=== PATIENT | male | born 1975 | race Caucasian/White ===

== ENCOUNTER 2023-07-24 17:30 | Emergency (ER) | payer OTHER, SELFPAY ==
--- NOTE | ~2023-07-24 | XR_ITS ---
EXAMINATION: XR knee LT min 4V DATE: 07/24/2023 18:59 INDICATION: Left knee pain. Swelling. TECHNIQUE: 4 views of left knee were obtained. COMPARISON: None. FINDINGS: Bone alignment is normal. No fracture. There is mild tricompartmental osteoarthritis. There is a small knee joint effusion. IMPRESSION: 1. Mild left knee osteoarthritis. 2. Small left knee joint effusion. Reviewed, dictated and finalized at location [facility]
[2023-07-24 17:46] VITALS: BP 150/96; PULSE 90; RESP 16; TEMP 37.5; O2SAT 97
--- NOTE | 2023-07-24 18:44 | ED.EXTPRO ---
HPI - Extremity Problem General Chief complaint: Extremity Problem,Nontraumatic Stated complaint: Left Knee Pain Time Seen by Provider: 07/24/23 18:44 Source: patient Mode of arrival: ambulatory Limitations: no limitations History of Present Illness HPI Narrative: 48-year-old male presents with complaint of pain to left knee for several months. Reports that he has mention in the past to his primary care physician who said he would order physical therapy but that was never ordered. Patient has not had x-ray of left knee. Reports over the past week pain worse with swelling and stiffness. Denies injury. All systems reviewed and negative except as noted above. Related Data Allergies Allergy/AdvReac Type Severity Reaction Status Date / Time Penicillins Allergy Unknown SWELLING Verified 07/24/23 17:53 OF GREAT TOE AT AGE 2 Review of Systems Review of Systems: CONSTITUTIONAL: Denies fever, chills, or sweats. EYES: Denies visual changes, redness, or discharge. ENT: Denies rhinorrhea, congestion, sore throat, or otalgia. CARDIOVASCULAR: Denies chest pain, palpitations, or edema. RESPIRATORY: Denies cough or dyspnea. GASTROINTESTINAL: Denies abdominal pain, nausea, vomiting, or diarrhea. GENITOURINARY: Denies dysuria or hematuria. SKIN: Denies rash or itching. MUSCULOSKELETAL: Denies back pain, or myalgia. Reports pain and swelling to left knee. NEUROLOGIC: Denies headache, numbness, or weakness. PSYCHIATRIC: Denies anxiety or depression. All other systems reviewed are negative, except as documented in HPI. [facility] Past Medical History Medical History (Updated 07/24/23 @ 19:18 by Zaida Jamison NP) Diplopia Right hand paresthesia Surgical History Surgical History (Updated 06/30/19 @ 09:38 by Elisa Ny MD) H/O hand surgery Family History Family History (Updated 06/30/19 @ 09:39 by Elisa Ny MD) Father Malignant neoplasm of prostate Social History Social History (Updated 06/30/19 @ 09:40 by Elisa Ny MD) Social History: lives with his and son. sleeps in a separate bed with son and dog Smoking status: Never smoker Alcohol intake: never Substance use: never Additional occupation/education comments: works in a [employer] Comments At time of signature, agree with nursing past medical, surgical, social and family history. There is no relevant family history pertinent to the presenting complaint. Exam Narrative: GENERAL: This is a well-nourished, well-developed patient, in no apparent distress. HEAD: normocephalic, atraumatic. EYES: PERRL. Sclera clear/white. Vision is grossly intact. EARS: External ears normal NOSE: External nose normal NECK: Neck supple, non-tender without lymphadenopathy, masses or thyromegaly. CARDIOVASCULAR: Regular rate and rhythm without murmurs, gallops, or rubs. RESPIRATORY: Clear to auscultation. Breath sounds equal bilaterally. No wheezes, rales, or rhonchi. SKIN: warm, Dry, intact with no suspicious lesions or rash, good texture and turgor. NEURO: awake, alert, and oriented to person, place and time. There were no obvious focal neurologic abnormalities. EXTREMITIES: Mild swelling to left knee with tenderness to medial aspect. Decreased extension due to pain and stiffness. Course Course Level of Care: Express Care Visit Vital Signs Vital signs: Vital Signs Temperature 37.5 C 07/24/23 17:46 Pulse Rate 90 07/24/23 17:46 Respiratory Rate 16 07/24/23 17:46 Blood Pressure 150/96 H 07/24/23 17:46 Pulse Oximetry 97 07/24/23 17:46 Oxygen Delivery Room Air 07/24/23 17:46 Temperature 37.5 C 07/24/23 17:46 Pulse Rate 90 07/24/23 17:46 Respiratory Rate 16 07/24/23 17:46 Blood Pressure 150/96 H 07/24/23 17:46 Pulse Oximetry 97 07/24/23 17:46 Oxygen Delivery Room Air 07/24/23 18:00 Reviewed MDM - Extremity (Nontraumatic) MDM Suzanne
== END 2023-07-24 19:25 | disposition home or self-care (01) ==
PROVIDERS: Emergency Provider Nurse Practitioner Family; PCP Physician Assistant
DX: M17.12 Unilateral primary osteoarthritis, left knee (principal); M25.462 Effusion, left knee
CPT/HCPCS: 73564; 99213; G0463

== ENCOUNTER 2023-10-26 05:36 | Emergency (ER) | payer OTHER, SELFPAY ==
[2023-10-26] VITALS (20 sets, daily range): BP systolic 126–158; BP diastolic 85–98; PULSE 70–94; RESP 13–20; TEMP 36.8; O2SAT 93–100
--- NOTE | ~2023-10-26 | CT_ITS ---
EXAMINATION: CT abdomen pelvis wo con DATE: 10/26/2023 05:59 INDICATION: Left flank pain TECHNIQUE: Computed tomography (CT) of the abdomen and pelvis was performed without intravenous contr ast. Automated exposure control and iterative reconstruction technique were employed. Exam dose: 106 4.82 mGy-cm total exam DLP. COMPARISON: 07/13/2010 CT renal scan FINDINGS: Minimal discoid atelectasis or scarring in the bases of the lower lobes. No basilar consoli dation. Normal heart size. No pericardial or pleural effusion. The liver, spleen, pancreas, gallbladder, bile ducts and pancreatic duct and adrenal glands are unrem arkable. 4 mm proximal left ureteral calculus with mild to moderate left hydronephrosis and mild left perineph james fat stranding. No urinary tract calculus. No right hydroureteronephrosis. No renal space occupying mass lesion is evident on this limited noncontrast examination. The urinary bladder is nearly evacuated. Mild prostate enlargement and calcification. Bilateral fat-containing inguinal hernias, larger on the left. Normal caliber of the abdominal aorta. No intraperitoneal or retroperitoneal or pelvic mass lesion or adenopathy or ascites. Normal appendix. No bowel obstruction or intraperitoneal free air. No suspicious osteolytic or osteoblastic lesions. IMPRESSION: 4 mm proximal left ureteral calculus with mild to moderate left hydronephrosis Reviewed, dictated and finalized at Location [facility]. Reviewed, dictated and finalized at location A. IMPRESSION: 4 mm proximal left ureteral calculus with mild to moderate left hy dronephrosis
--- NOTE | 2023-10-26 05:39 | ED.MALEGU ---
HPI - Male Genitourinary General Chief complaint: Urogenital-Male <Hector Manuel MD - Last Filed: 10/26/23 06:46> Stated complaint: flank pain <Hector Manuel MD - Last Filed: 10/26/23 06:46> Time Seen by Provider: 10/26/23 05:38 <Hector Manuel MD - Last Filed: 10/26/23 06:46> History of Present Illness HPI Narrative: Patient is a 48-year-old male who presents ER with left-sided abdominal pain. Diagnosed with a kidney stone on 10/24/2023 in [place], [place] at [facility]. He reports it was 4 mm in size. Pain increasing this evening. Mid abdomen. No vomiting. No fevers or chills or sweats. Initially pain improved with norco but now it isn't helping. <Hector Manuel MD - Last Filed: 10/26/23 06:46> Related Data Home medications: Home Medications Medication Instructions Recorded Confirmed hydrocodone 5 mg-acetaminophen 325 tablet 10/26/23 mg tablet naproxen 500 mg tablet mg 10/26/23 ondansetron 4 mg disintegrating mg 10/26/23 tablet tamsulosin 0.4 mg capsule mg PO 10/26/23 <Hector Manuel MD - Last Filed: 10/26/23 06:46> Allergies/Adverse reactions: Allergies Allergy/AdvReac Type Severity Reaction Status Date / Time Penicillins Allergy Unknown SWELLING Verified 10/26/23 05:42 OF GREAT TOE AT AGE 2 <Hector Manuel MD - Last Filed: 10/26/23 06:46> Review of Systems Review of Systems: All systems reviewed & are unremarkable except as noted in HPI and below <Hector Manuel MD - Last Filed: 10/26/23 06:46> Constitutional: Constitutional: Reports no additional constitutional complaints <Hector Manuel MD - Last Filed: 10/26/23 06:46> Cardiovascular: Cardiovascular: Reports no additional cardiovascular complaints <Hector Manuel MD - Last Filed: 10/26/23 06:46> Respiratory: Respiratory: Reports no additional respiratory complaints <Hector Manuel MD - Last Filed: 10/26/23 06:46> Gastrointestinal: Gastrointestinal: Reports abdominal pain, Reports nausea and Denies vomiting <Hector Manuel MD - Last Filed: 10/26/23 06:46> Genitourinary: Genitourinary: Reports no additional male genitourinary complaints <Hector Manuel MD - Last Filed: 10/26/23 06:46> PMFSH Past Medical History Medical History: Medical History (Updated 10/26/23 @ 08:45 by Moses Murphy MD) Diplopia Kidney stones Prediabetes Right hand paresthesia <Hector Manuel MD - Last Filed: 10/26/23 06:46> Surgical History Surgical History: Surgical History (Updated 06/30/19 @ 09:38 by Elisa Ny MD) H/O hand surgery <Hector Manuel MD - Last Filed: 10/26/23 06:46> Family History Family History: Family History (Updated 06/30/19 @ 09:39 by Elisa Ny MD) Father Malignant neoplasm of prostate <Hector Manuel MD - Last Filed: 10/26/23 06:46> Social History Social History: Social History (Updated 06/30/19 @ 09:40 by Elisa Ny MD) Social History: lives with his and son. sleeps in a separate bed with son and dog Smoking status: Never smoker Alcohol intake: never Substance use: never Additional occupation/education comments: works in a hand personal [employer] <Hector Manuel MD - Last Filed: 10/26/23 06:46> Exam Narrative: GENERAL: Uncomfortable-appearing, well-nourished, and in no acute distress. HEAD: Normocephalic, atraumatic. ENT: Mucous membranes moist. CHEST: Clear to auscultation. No respiratory distress. HEART: Regular rate and rhythm. Normal peripheral pulses. ABDOMEN: Soft, nontender, nondistended. No CVA tenderness. EXTREMITIES: Normal range of motion. No edema. SKIN: Warm, dry, no rash. NEURO: Alert and oriented x3. PSYCH: Normal mood and affect. <Hector Manuel MD - Last Filed: 10/26/23 06:46> Course Course Emergency Course: 0700: MICHELE to Dr. Murphy pending UA. Patient has received toradol 30mg and m
[2023-10-26] MEDS: SODIUM CHLORIDE 0.9% IV 1,000 ML 999 ML IV CONT (06:07)
[2023-10-26] MEDS: KETOROLAC 30 MG/ML VIAL (*BKC) IV PUSH (06:08)
[2023-10-26 06:14] LABS: Basophils Percent Auto 0.3 % (0.2-1.2); Eosinophils Percent Auto 0.1 % (0-4.4); Hematocrit 50.5 % (42.0-52.0); Hemoglobin 16.3 g/dL (14.0-18.0); Immature Granulocyte Absolute 0.03 K/mm3 (0.00-0.031); Immature Granulocyte Percent A 0.3 % (0-0.5); Lymphocytes Absolute Auto 1.11 K/mm3 (0.9-3.2); Lymphocytes Percent Auto 10.1 % (18.3-44.2); Mean Corpuscular HGB Conc 32.3 g/dl (32-36); Mean Corpuscular Volume 89.9 fl (80-100); Mean Platelet Volume 11.1 fl (7.4-10.4); Monocytes Absolute Auto 0.6 K/mm3 (0.1-0.6); Neutrophils Absolute Auto 9.2 K/mm3 (1.3-6.7); Neutrophils Percent Auto 84.2 % (45.5-73.1); Platelet Count Result 180 k/mm3 (150-375); Red Blood Count 5.62 M/mm3 (4.6-6.20); Red Cell Distribution Width 13.8 % (11.5-14.5); White Blood Count 10.9 K/mm3 (4.5-10.0)
[2023-10-26 06:26] LABS: Alanine Aminotransferase 31 U/L (6-50); Albumin Level 4.3 g/dL (3.5-5.1); Alkaline Phosphatase 49 U/L (38-126); Anion Gap 10 mmol/L (4-12); Aspartate Amino Transferase 28 U/L (17-59); Bilirubin,Total 1.1 mg/dL (0.2-1.3); Blood Urea Nitrogen 16 mg/dL (9-20); Calcium 8.7 mg/dL (8.4-10.2); Carbon Dioxide 22 mmol/L (22-30); Chloride 106 mmol/L (98-107); Estimated Glomerular Filt Rate 46; Glucose 124 mg/dL (65-110); Potassium 4.1 mmol/L (3.4-5.0); Sodium 138 mmol/L (137-145)
[2023-10-26] MEDS: MORPHINE SULFATE (*CRX) 4 MG/ML INJ IV PUSH (06:45)
--- NOTE | 2023-10-26 06:49 | PC.NURSE ---
Patient ambulated to the bathroom and back to room with a steady gait to attempt to provide a urine sample, patient was unsuccessful.
[2023-10-26 07:59] LABS: Appearance Urine Clear (Clear); Bilirubin Urine Negative (Negative); Blood Urine Negative (Negative); Color Urine Yellow (Yellow); Glucose Urine UA Negative (Negative); Ketones Urine 3+ mg/dL (Negative); Leukocyte Esterase Ur Negative LEU/UL (Negative); Nitrate Urine Negative (Negative); Protein Urine Negative (Negative); Specific Grav Ur 1.029 (1.001-1.035); pH Urine 5.5 (5.0-9.0)
[2023-10-26 08:03] LABS: Add Urine Microscopic? NO
== END 2023-10-26 08:59 | disposition home or self-care (01) ==
PROVIDERS: Emergency Provider Emergency Medicine; PCP Physician Assistant
DX: N20.0 Calculus of kidney (principal); Z87.442 Personal history of urinary calculi
CPT/HCPCS: 36415; 74176; 80053; 81003; 85025; 96361; 96374; 96375; 99284; J1885; J2270; J7030

== ENCOUNTER 2023-11-02 13:06 | Emergency (ER) | payer OTHER, SELFPAY ==
--- NOTE | ~2023-11-02 | XR_ITS ---
XR abdomen/kub 1V Ordering provider: Julio Cesar Clemons History: . History of kidney stone on left, pain . Comparison: None. FINDINGS: BOWEL: Nonobstructive bowel gas pattern. ORGANOMEGALY: None. SIGNIFICANT PATHOLOGIC CALCIFICATIONS: stone is seen in the left mid ureter. Possible stone in the le ft upper ureter. Phlebolith is seen in the left side of the pelvis. OTHER: No free air is seen under the diaphragm. IMPRESSION: left ureteric stones. Reviewed, dictated and finalized at location A. IMPRESSION: left ureteric stones.
[2023-11-02 13:20] VITALS: BP 156/88; PULSE 90; RESP 16; TEMP 36.5; O2SAT 99
[2023-11-02 13:43] LABS: Basophils Percent Auto 0.3 % (0.2-1.2); Eosinophils Percent Auto 0.2 % (0-4.4); Hematocrit 49.6 % (42.0-52.0); Hemoglobin 16.3 g/dL (14.0-18.0); Immature Granulocyte Absolute 0.03 K/mm3 (0.00-0.031); Immature Granulocyte Percent A 0.3 % (0-0.5); Lymphocytes Percent Auto 13.3 % (18.3-44.2); Mean Corpuscular HGB Conc 32.9 g/dl (32-36); Mean Corpuscular Volume 88.3 fl (80-100); Mean Platelet Volume 10.8 fl (7.4-10.4); Monocytes Absolute Auto 0.5 K/mm3 (0.1-0.6); Neutrophils Absolute Auto 7.2 K/mm3 (1.3-6.7); Neutrophils Percent Auto 79.9 % (45.5-73.1); Platelet Count Result 253 k/mm3 (150-375); Red Blood Count 5.62 M/mm3 (4.6-6.20); Red Cell Distribution Width 13.3 % (11.5-14.5)
[2023-11-02 13:53] LABS: Alanine Aminotransferase 20 U/L (6-50); Albumin Level 4.6 g/dL (3.5-5.1); Alkaline Phosphatase 54 U/L (38-126); Anion Gap 10 mmol/L (4-12); Aspartate Amino Transferase 22 U/L (17-59); Bilirubin,Total 0.7 mg/dL (0.2-1.3); Blood Urea Nitrogen 17 mg/dL (9-20); Calcium 9.2 mg/dL (8.4-10.2); Carbon Dioxide 25 mmol/L (22-30); Chloride 106 mmol/L (98-107); Estimated CRCL calculation 78 ml/min; Estimated Glomerular Filt Rate 59; Glucose 119 mg/dL (65-110); Potassium 4.3 mmol/L (3.4-5.0); Sodium 141 mmol/L (137-145)
--- NOTE | 2023-11-02 14:34 | ED.BACK ---
HPI - Back Pain/Injury General Chief Complaint: Back Pain/Injury Stated Complaint: L. flank pain Time Seen by Provider: 11/02/23 13:52 History of Present Illness HPI Narrative: 48-year-old male presenting to the emergency department for evaluation of intermittent left lower quadrant pain. Patient was diagnosed with a kidney stone on 10/23. Patient had recurrent pain and was re-evaluated in the emergency department last week 10/26. The patient does have follow-up scheduled urology. Patient did have follow-up with his primary care physician yesterday and patient was feeling improved and was not provided needed some medication for pain control. Patient had acutely worsening pain last night. Patient was also having intense tenderness at 10 abdominal pain today. Prior to evaluation patient feels that the pain has since improved to the emergency department. On initial evaluation patient declined any medications for pain control Related Data Home Medications Medication Instructions Recorded Confirmed hydrocodone 5 mg-acetaminophen 325 tablet 10/26/23 mg tablet naproxen 500 mg tablet mg 10/26/23 ondansetron 4 mg disintegrating mg 10/26/23 tablet tamsulosin 0.4 mg capsule mg PO 10/26/23 Allergies Allergy/AdvReac Type Severity Reaction Status Date / Time Penicillins Allergy Unknown SWELLING Verified 11/02/23 13:42 OF GREAT TOE AT AGE 2 Review of Systems Review of Systems: All systems reviewed & are unremarkable except as noted in HPI and below PMFSH Past Medical History Medical History (Updated 11/02/23 @ 16:50 by Julio Cesar Clemons MD) Diplopia Kidney stones Prediabetes Right hand paresthesia Surgical History Surgical History (Updated 06/30/19 @ 09:38 by Elisa Ny MD) H/O hand surgery Family History Family History (Updated 06/30/19 @ 09:39 by Elisa Ny MD) Father Malignant neoplasm of prostate Social History Social History (Updated 06/30/19 @ 09:40 by Elisa Ny MD) Social History: lives with his and son. sleeps in a separate bed with son and dog Smoking status: Never smoker Alcohol intake: never Substance use: never Additional occupation/education comments: works in a [employer] Exam Narrative: APPEARANCE: No significant distress HEAD: normocephalic, atraumatic. EYES: PERRLA/EOMI, conjunctivae clear. NOSE: Normal no drainage EARS:TMS clear with good light reflex. THROAT: Pharynx clear, no exudate. NECK: Supple. No adenopathy, no masses. RESPIRATORY: Airway patent, respirations nonlabored. Clear to auscultation bilaterally, no rales, rhonchi, wheezing. CARDIOVASCULAR: Regular rate and rhythm without murmurs rubs or gallops. ABDOMINAL: Soft, nontender, nondistended, normal bowel sounds MUSCULOSKELETAL: Moves all extremities. Strength/ROM intact, No edema, No calf tenderness. NEURO: Alert. Cranial nerves II through XII intact. Grossly SKIN: Warm, dry. Normal Color Course Vital Signs Vital signs: Vital Signs Temperature 97.7 F 11/02/23 13:20 Pulse Rate 90 11/02/23 13:20 Respiratory Rate 16 11/02/23 13:20 Blood Pressure 156/88 H 11/02/23 13:20 Pulse Oximetry 99 11/02/23 13:20 Oxygen Delivery Room Air 11/02/23 13:20 Temperature 97.7 F 11/02/23 13:20 Pulse Rate 70 11/02/23 16:58 Respiratory Rate 18 11/02/23 16:58 Blood Pressure 138/70 11/02/23 16:58 Pulse Oximetry 99 11/02/23 16:58 Oxygen Delivery Room Air 11/02/23 13:20 MDM - Back Pain/Injury MDM Narrative Medical decision making narrative: 48-year-old male presents emergency department for evaluation for recurrent left flank pain. Patient was concerned that his kidney stones had worsen. X-ray was ordered since patient has had multiple CT scans and x-ray did show suspected ureteral calculi. Urine shows no significant evidence of infection so low concern for a infected stone. Patient only had interm
[2023-11-02 15:24] LABS: Appearance Urine Cloudy (Clear); Bacteria Urine None Seen /hpf; Bilirubin Urine Negative (Negative); Blood Urine 2+ (Negative); Calcium Oxalate Crystals Urine Present /hpf; Color Urine Dark Yellow (Yellow); Glucose Urine UA Negative (Negative); Ketones Urine 1+ mg/dL (Negative); Leukocyte Esterase Ur Negative LEU/UL (Negative); Nitrate Urine Negative (Negative); Protein Urine Trace mg/dL (Negative); RBC Urine 51-100 /hpf (0-2); Specific Grav Ur 1.036 (1.001-1.035); Squamous Epithelial Cell Urine None Seen /hpf (Few); WBC Urine 0-5 /hpf (0-3); pH Urine 5.5 (5.0-9.0)
[2023-11-02 15:25] LABS: Add Urine Microscopic? YES
[2023-11-02] MEDS: HYDROcodone/acetaminophen (*CRX) 5-325 MG TABLET 1 TAB PO (16:52)
[2023-11-02 16:58] VITALS: BP 138/70; PULSE 70; RESP 18; O2SAT 99
== END 2023-11-02 16:59 | disposition home or self-care (01) ==
PROVIDERS: Emergency Medicine; Emergency Provider Emergency Medicine; PCP Physician Assistant
DX: N21.1 Calculus in urethra (principal); R73.03 Prediabetes; Z87.442 Personal history of urinary calculi
CPT/HCPCS: 36415; 74018; 80053; 81001; 85025; 99283; A9270

== ENCOUNTER 2023-12-12 08:18 | Outpatient (CLI) | payer OTHER, SELFPAY ==
--- NOTE | ~2023-12-12 | XR_ITS ---
XR abdomen/kub 1V Ordering provider: Dallin Martin MD History: . LEFT URETERAL STONE, FOLLOW UP . Comparison: November 02, 2023 FINDINGS: BOWEL: Nonobstructive bowel gas pattern. ORGANOMEGALY: None. SIGNIFICANT PATHOLOGIC CALCIFICATIONS: None. Previously seen left ureteric stone is not demonstrate d at this time OTHER: No free air is seen under the diaphragm. IMPRESSION: NO ACUTE ABDOMINAL FINDINGS. Reviewed, dictated and finalized at location A.
== END 2023-12-12 08:19 | disposition home or self-care (01) ==
PROVIDERS: PCP Physician Assistant; Visit Provider Urology
DX: N20.1 Calculus of ureter (principal)
CPT/HCPCS: 74018

== ENCOUNTER 2024-10-29 05:48 | Emergency (ER) | payer OTHER, SELFPAY ==
[2024-10-29 05:50] VITALS: BP 149/90; PULSE 70; TEMP 36.5; O2SAT 97
--- OUTSIDE RECORDS SUMMARY | 2024-10-29 05:50 | XMS_ITS | Referral Summary ---
Author Organization [address] Address [address] [place] [id number] Care Team Providers Care Rail Gang Supervisor Name Role Phone KENTRELL Crowell Jr., Chuck Granado Primary Care Provide r Sandro Pavon MD Unavailable [phone] Allergies Active Allergy Reactions Criticality Noted Date Comments Penicillin G Benzathine Unknown 05/26/2019 Medications HYDROcodone-acetam inophen (NORCO) 5-325 mg per tablet Take 1 tablet by mouth every 4 (four) hours as needed 4 Active tamsulosin (FLOMAX) 0.4 mg extended release capsuleIndications :Urolithiasis Take 1 capsule (0.4 mg total) by mouth daily 30 capsule 1 4 Active ketorolac (TORADOL) 10 mg tabletIndications: Renal Colic,Severe Pain Take 1 tablet (10 mg total) by mouth every 6 (six) hours as needed for pain 20 tablet 1 4 Active ondansetron ODT (ZOFRAN-ODT) 4 mg disintegrating tablet Take 1 tablet (4 mg total) by mouth every 8 (eight) hours as needed for nausea or vomiting 24 tablet 4 Active ergocalciferol (VITAMIN D) 50,000 unit capsule Take 1 capsule (50,000 Units total) by mouth once a week Active anastrozole (ARIMIDEX) 1 mg tablet Take by mouth once a week Active TESTOSTERONE CYPIONATE IM Inject 160 mg into the muscle as instructed once a week Active traZODone (DESYREL) 50 mg tabletIndications: insomnia associated with depression Take 1 tablet (50 mg total) by mouth nightly as needed for sleep 90 tablet 1 12/16/202 4 Active Active Problems Problem Noted Date Diagnosed Date Hematochezia 05/04/2024 Calculus of left kidney 05/23/2018 Overview (07/11/2022): by given hx Obesity, unspecified 12/07/2016 Resolved Problems Problem Noted Date Diagnosed Date Resolved Date Bitten by dog, initial encounter 01/25/2017 05/04/2024 Immunizations Immunization Administration Dates Next Due Influenza, Quadrivalent, Spl it, Preservative Free, Intramuscular 03/11/2018 Influenza, Trivalent, Preser vative Free, Intramuscular 03/11/2017 Influenza, Unspecified 03/20/2023(Deferr ed: Patient Refused),04/10/2022(Deferred: Patient decision) Tdap 01/25/2017 Social History Tobacco Use Types Packs/Day Years Used Date Smoking Tobacco: Never Smokeless Tobacco: Never Tobacco Cessation:Counseling Given: Not Answered AUDIT-C Answer Date Recorded Q1: How often do you have a drink containing alcohol? Never 05/15/2024 Q2: How many drinks containi ng alcohol do you have on a typical day when you are drinking? Patient does not drink Q3: How often do you have si x or more drinks on one occasion? Never 05/15/2024 PHQ-2 Answer Date Recorded PHQ-2 Total Score (If total score is 3 or more points, staff should administer the PHQ-9) 0 11/01/2023 Sex and Gender Information Value Date Recorded Sex Assigned at Not on file Legal Sex Male 1:08 AM [employer] SAL[employer]ERSON Gender Identity Not on file Sexual Orientation Not on file Last Filed Vital Signs Vital Sign Reading Time Taken Comments Blood Pressure 130/82 05/04/2024 8:39 AM [employer] SAL[employer]ERSON Pulse 74 05/04/2024 8:39 AM [employer] SALESPERSON Temperature 36.2 C (97.2 F) 05/04/2024 8:39 AM [employer] SAL[employer]ERSON Respiratory Rate 20 05/04/2024 8:39 AM [employer] SAL[employer]ERSON Oxygen Saturation 98% 05/04/2024 8:39 AM [employer] SALESPERSON Inhaled Oxygen Concentration - - Weight 106.4 kg (234 lb 9.6 oz) 05/04/2024 8:39 AM [employer] SALESPERSON Height 175.9 cm (5' 9.25) 05/04/2024 8:39 AM CS T Body Mass Index 34.39 05/04/2024 8:39 AM [employer] SAL[employer]ERSON Plan of Treatment Not on file Procedures Procedure Name Priority Date/Time Associated Diagnosis Comments HEPATITIS C ANTIBODY Routine 05/04/2024 9:48 AM [employer] SAL[employer]ERSON Annual physical exam Encounter for hepatitis C screening test for low risk patient PSA SCREEN Routine 05/04/2024 9:48 AM [employer] SALESPERSON Annual physical exam from Last 3 Months or Most Recently Relevant to Health Maintenance Results * PSA screen (05/04/2024 9:48 AM [employer] SALESPERSON) PSA-Total 1.81 ng/mL Comment: Interpretive Data AGE SEX REFERENCE INTERVAL 0 minutes-150 years Female None 0 minutes-49 years Male None 50-59 years Male 0-3.90 60-69 years Male 0-5.40 70-79 years Male 0-6.20 80-150 years Male 0-6.20 The Rodney PSA Total assay procedure was used. Results from different manufacturers or methods may not be comparable. Serial testing should be performed using the same method. Current interpretive data last revised 21. Testing performed by: [facility], [address] [place] [address]., [id number] Blood 05/04/2024 9:48 AM [employer] SALESPERSON 05/04/2024 10:41 AM [employer] SALESPERSON us KENTRELL Mckee Jr. LAB BLOOD ORDERABLES Final Result Performing Organization Address City/State/[facility] Co sc Phone Number [facility] [address] [facility] Department [place] [address] * Hepatitis C antibody Blood (05/04/2024 9:48 AM [employer] SALESPERSON) Hep C Ab Nonreactive Nonreactive Comment: Antibodies to HCV not detected. Does NOT exclude the possibility of recent exposure to HCV. Current interpretive data was last revised on 22 Interpretive Data Nonreactive: Antibodies to HCV not detected. Does NOT exclude the possibility of recent exposure to HCV. Equivocal: Equivocal for HCV antibodies. Supplemental molecular testing will be automatically performed to determine infection status in accordance with current CDC screening recommendations. Reactive: Positive for HCV antibodies. This may represent current or past HCV infection. Supplemental molecular testing will be automatically performed to determine current infection status in accordance with current CDC screening recommendations. Interpretive data was last revised on 2019. Blood 05/04/2024 9:48 AM [employer] SALESPERSON 05/04/2024 1:20 PM [employer] SALESPERSON KENTRELL Mckee Jr. LAB MICROBIOLOGY - NERAL ORDERABLES Final Result [facility] [address] [facility] Department [place] [address] from Last 3 Months or Most Recently Relevant to Health Maintenance Insurance [employer] [facility] CHOICE PLUS CIGNA CIGNA Care Teams Rail Gang Supervisor Relationship Specialty Start Date End Date Chuck Crowell Jr., PA [address] [place] [address] [phone] PCP - General Family Medicine 05/18/19 Sandro Pavon MD [address] [place] [address] [phone] Consulting Physician Family Medicine 10/04/21
--- OUTSIDE RECORDS SUMMARY | 2024-10-29 05:50 | XMS_ITS | Clinical Summary ---
Author Organization [address] Address [address] [place] [phone] Care Team Providers Care Senior Solutions Consultant Name Role Phone KENTRELL Crowell Jr., Chuck Granado Primary Care Provide r Sandro Pavon MD Unavailable Allergies Active Allergy Reactions Criticality Noted Date [...] ed: Patient Refused),04/10/2022(Deferred: Patient decision) Tdap 01/25/2017 Medical History Medical History Date Comments Kidney stone Chronic constipation Family History Medical History Relation Name Comments Cancer Father Relation Name Status Comments Father Alive Mother Alive Social History Tobacco Use Types Packs/Day Years [...] on file Legal Sex Male 1:08 AM ACID CONDITIONER Gender Identity Not on file Sexual Orientation Not on file Obstetrics History Last Filed Vital Signs Vital Sign Reading Time Taken Comments Blood Pressure 130/82 05/04/2024 8:39 AM ACID CONDITIONER Pulse 74 05/04/2024 8:39 AM ACID CONDITIONER Temperature 36.2 C (97.2 F) 05/04/2024 8:39 AM ACID CONDITIONER Respiratory Rate 20 05/04/2024 8:39 AM ACID CONDITIONER Oxygen Saturation 98% 05/04/2024 8:39 AM ACID CONDITIONER Inhaled Oxygen Concentration - - Weight 106.4 kg (234 lb 9.6 oz) 05/04/2024 8:39 AM ACID CONDITIONER Height 175.9 cm (5' 9.25) 05/04/2024 8:39 AM CS T Body Mass Index 34.39 05/04/2024 8:39 AM ACID CONDITIONER Plan of Treatment Health Maintenance Due Date Last Done Comments Colon Cancer Screening-Colonoscopy 1974 Hepatitis B Screening 1992 Pneumococcal vaccine <65 (1 of 2 - PCV) 1993 Zoster Vaccine (1 of 2) 1993 Depression Screening 10/31/2024 11/01/2023, 10/04/2021 Influenza Vaccine (Season Ended) 2025 03/11/2018, 03/11/2017 Covid-19 Vaccine (3 - Modern a risk series) 05/04/2025 02/10/2021, 01/13/2021 Postponed from 03/10/2021 (Patient declined, but will receive in the future) Regular Well Visit/Exam 18-64 05/04/2025 05/04/2024 Prostate Cancer Screening-PSA 05/04/2026 05/04/2024 DTaP/Tdap/Td Vaccine (2 - Td or Tdap) 01/25/2027 01/25/2017 Hepatitis C Screening Completed 05/04/2024 Procedures Procedure Name Priority Date/Time Associated Diagnosis Comments HEPATITIS C ANTIBODY Routine 05/04/2024 9:48 AM ACID CONDITIONER Annual physical exam Encounter for hepatitis C screening test for low risk patient PSA SCREEN Routine 05/04/2024 9:48 AM ACID CONDITIONER Annual physical exam from Last 3 Months or Most Recently Relevant to Health Maintenance Results * PSA screen (05/04/2024 9:48 AM ACID CONDITIONER) PSA-Total 1.81 ng/mL Comment: Interpretive Data AGE [...] data last revised 21. Testing performed by: [facility], [address] [place] [address]., [id number] Blood 05/04/2024 9:48 AM ACID CONDITIONER 05/04/2024 10:41 AM ACID CONDITIONER KENTRELL Mckee Jr. LAB BLOOD ORDERABLES Final Result Performing Organization Address [facility] Co de Phone Number SOLO [address] [facility] Department [place] [address] * Hepatitis C antibody Blood (05/04/2024 9:48 AM ACID CONDITIONER) Hep C Ab Nonreactive Nonreactive Comment: Antibodies [...] revised on 2019. Blood 05/04/2024 9:48 AM ACID CONDITIONER 05/04/2024 1:20 PM ACID CONDITIONER us KENTRELL Mckee Jr. LAB MICROBIOLOGY - GE NERAL ORDERABLES Final Result Performing Organization Address [facility] de Phone Number SOLO [address] [facility] Department [place] [address] from Last 3 Months or Most Recently Relevant to Health Maintenance Insurance [facility] Care Teams Senior Solutions Consultant Relationship Specialty Start Date End Date Chuck Crowell Jr. PA [address] [address] PCP - General Family Medicine 05/18/19 Sandro Pavon MD [address] [address] Consulting Physician Family Medicine 10/04/21
--- OUTSIDE RECORDS SUMMARY | 2024-10-29 05:50 | XMS_ITS | Clinical Summary ---
Author Organization [facility] Address [address] [place] [phone] Phone Care Team Providers Care Vocational Trainer Name Role Phone Unavailable Primary Care Provider Unavailabl e Allergies Active Allergy Reactions Criticality Noted Date Comments Penicillin G Benzathine Nausea and Vomiting Low 11/2019 Medications HYDROcodone-dotty taminophen (NORCO) 5-325 mg tabletIndicatio ns:Left ureteral stone Take 1 Tablet by mouth every 4 hours as needed for Pain. Max Daily Amount: 6 Tablets 15 Tablet 10/24/2023 2:14 PM CDT 10/24/2023 Active naproxen (NAPROSYN) 500 mg tablet Take 1 Tablet (500 mg) by mouth 2 times daily with meals. 14 Tablet 10/24/2023 2:14 PM CDT 10/24/2023 Active ondansetron (ZOFRAN ODT) 4 mg Tablet, Rapid Dissolve Take 1 Tablet (4 mg) by mouth every 8 hours as needed for Nausea/Emesis . Dissolve tablet on top of tongue, then swallow with saliva. 10 Tablet 10/24/2023 2:14 PM CDT 10/24/2023 Active Encounters Date Type Department Care Team Description 10/13/2024 External Device Data [facility]CTION Provider, Abstract 10/08/2024 External Device Data [facility] Provider, Abstract 10/08/2024 External Device Data [facility] Provider, Abstract 09/22/2024 External Device Data [facility] Provider, Abstract 08/25/2024 External Device Data [facility] Provider, Abstract 08/05/2024 External Device Data [facility] Provider, Abstract from Last 3 Months Social History Tobacco Use Types Packs/Day Years Used Date Smoking Tobacco: Never Smokeless Tobacco: Never Tobacco Cessation:Counseling Given: Not Answered Alcohol Use Standard Drinks/Week Comments Yes 0 (1 standard drink = 0.6 oz pur e alcohol) rare Feeling Safe Answer Date Recorded Are you in a relationship wi th someone who hurts you emotionally and/or physically? No 10/24/2023 Sex and Gender Information Value Date Recorded Sex Assigned at Not on file Legal Sex Male 1:28 PM CDT Gender Identity Not on file Sexual Orientation Not on file Last Filed Vital Signs Vital Sign Reading Time Taken Comments Blood Pressure 154/98 10/24/2023 1:00 PM CDT Pulse 82 10/24/2023 1:00 PM CDT Temperature 36.7 C (98.1 F) 10/24/2023 12:06 PM CDT Respiratory Rate 16 10/24/2023 12:06 PM CDT Oxygen Saturation 94% 10/24/2023 1:00 PM CDT Inhaled Oxygen Concentration - - Weight 116.1 kg (256 lb) 10/24/2023 12:06 PM CDT Height 177.8 cm (5' 10) 10/24/2023 12:06 PM CDT Body Mass Index 36.73 10/24/2023 12:06 PM CDT Plan of Treatment Health Maintenance Due Date Last Done Comments HEPATITIS B VACCINES (1 of 3 - 19+ 3-dose series) 1993 COLORECTAL SCREENING 2019 Colorectal Cancer Screening 2019 FIT-DNA Q 3 years 2019 FIT/FOBT Q 1 year 2019 Flex Sig/CT Colonography Q 5 years 2019 INFLUENZA VACCINE (#1) 2023 03/11/2018, 2016 ZOSTER VACCINE (1 of 2) 2024 DTAP/TDAP/TD VACCINES (2 - Td or Tdap) 01/25/2027 Insurance COUNT INCLUDES THE [facility] OPEN ACCESS HMO RX [employer]
[2024-10-29 05:56] VITALS: BP 146/93; PULSE 67; RESP 16; O2SAT 97
[2024-10-29 06:00] VITALS: O2SAT 96
[2024-10-29 06:34] LABS: Strep Group A RT-PCR NOT DETECTED (Negative)
[2024-10-29 06:46] LABS: Influenza A QL RT-PCR Negative (Negative); Influenza B QL RT-PCR Negative (Negative); RSV RNA, RT-PCR Negative (Negative); SARS-CoV-2 RNA PCR Negative (Negative)
--- NOTE | 2024-10-29 07:24 | ED_ITS ---
HPI - URI/Sore Throat General Chief Complaint: Upper Respiratory Infection Stated Complaint: sore throat with yellow pus Time Seen by Provider: 10/29/24 07:01 Source: patient Mode of arrival: ambulatory Limitations: no limitations History of Present Illness HPI Narrative: This is a 49-year-old male, with no significant past medical history, presents emergency department complaining of sore throat with yellow drainage. Patient states this is been going on since this morning. He denies any known sick contacts or recent travel. He states he feels as if his usually gets stuck to the back of his throat while clearing his throat. He denies difficulty breathing, difficulty swallowing or neck swelling. He has no other complaints at this time. Related Data Home Medications ?Medication ?Instructions ?Recorded ?Confirmed ?Last Taken ?Type hydrocodone 5 mg-acetaminophen 325 tablet 10/26/23 Unknown History mg tablet naproxen 500 mg tablet mg 10/26/23 Unknown History ondansetron 4 mg disintegrating mg 10/26/23 Unknown History tablet tamsulosin 0.4 mg capsule mg PO 10/26/23 Unknown History Allergies Allergy/AdvReac Type Severity Reaction Status Date / Time Penicillins Allergy Unknown SWELLING Verified 10/29/24 05:49 OF GREAT TOE AT AGE 2 Review of Systems Review of Systems: All systems reviewed & are unremarkable except as noted in HPI and below PMFSH Past Medical History Medical History (Updated 10/29/24 @ 07:48 by Arben Handley MD) Prediabetes Kidney stones Right hand paresthesia Diplopia Surgical History Surgical History (Updated 10/29/24 @ 07:48 by Arben Handley MD) History of tonsillectomy H/O hand surgery Family History Family History Father Malignant neoplasm of prostate Social History Social History Social History: lives with his and son. sleeps in a separate bed with son and dog Smoking status: Never smoker Alcohol intake: never Substance use: never Additional occupation/education comments: works in a [employer] Exam Narrative: GENERAL: Well-developed, well-nourished, and in no acute distress. HEAD: Normocephalic, atraumatic. EYES: PERRLA and EOMI. ENT: Nares clear, no rhinorrhea or epistaxis. Mucous membranes moist. Oropharynx with retropharyngeal erythema, the tonsils appear surgically absent. There is no noted exudate or other lesions. NECK: Supple. No adenopathy or masses. CHEST: Clear to auscultation. No respiratory distress. No wheezes rales or rhonchi HEART: Regular rate and rhythm. No murmur heard. Normal peripheral pulses. EXTREMITIES: Normal range of motion. No edema. SKIN: Warm, dry, no rash. NEURO: Alert and oriented x3. No focal deficit. Moving all 4 limbs spontaneously PSYCH: Normal mood and affect. Course Course Emergency Course: 07:24 - The patient tested negative for COVID, influenza, strep and RSV. I do not suspect a retropharyngeal or peritonsillar abscess. Will treat with oral Decadron and discharge with recommendation for symptomatic control and primary care follow-up. I discussed the findings and recommendations with the patient. Discussed return and emergency precautions including signs/symptoms of the cyst neck infection and airway compromise. The patient voiced understanding and agreement with the plan. All questions answered to his satisfaction. Vital Signs Vital signs: Vital Signs Temperature 97.7 F 10/29/24 05:50 Pulse Rate 70 10/29/24 05:50 Blood Pressure 149/90 H 10/29/24 05:50 Pulse Oximetry 97 10/29/24 05:50 Oxygen Delivery Room Air 10/29/24 05:50 Temperature 97.7 F 10/29/24 05:50 Pulse Rate 67 10/29/24 05:56 Respiratory Rate 16 10/29/24 05:56 Blood Pressure 146/93 H 10/29/24 05:56 Pulse Oximetry 96 10/29/24 06:00 Oxygen Delivery Room Air 10/29/24 06:00 MDM - URI/Sore Throat MDM Narrative Medical decision making narrative: Plan: Labs, symptomatic control, reassess Differential Diagnosis Differential diagnosis: Likely upper respiratory infection, viral infection, pharyngitis and other (Strep pharyngitis, other) Lab Data Labs: Lab Results 10/29/24 Range/Units 05:59 Influenza A (RT-PCR) Negative (Negative) Influenza B (RT-PCR) Negative (Negative) RSV (RT-PCR) Negative (Negative) SARS-CoV-2 RNA (RT-PCR) Negative (Negative) Group A Strep (PCR) Not detected (Negative) Discharge Plan Discharge Clinical Impression: Pharyngitis Qualifiers: Pharyngitis/tonsillitis etiology: unspecified etiology Qualified Code(s): J02.9 - Acute pharyngitis, unspecified Patient Disposition: Home Condition: Stable Instructions: Antibiotic Form, Pharyngitis (ED) Additional Instructions: You were seen in the emergency department. You tested negative for COVID, strep, influenza and RSV. I suspect your sore throat is due to a separate viral infection. I recommend salt water gargles, honey lemon tea, rest, Tylenol/ibuprofen and follow-up with your primary care doctor. If you develop difficulty breathing, difficulty swallowing, rapid neck swelling with increasing pain and fevers, or if you have other emergent concerns for life, limb, or eyesight, return to the emergency department. Patient Language: Chinese Prescriptions: No Action prednisone 20 mg tablet 40 mg PO DAILY 5 Days Qty: 10 0RF hydrocodone-acetaminophen 5-325 mg tablet tamsulosin 0.4 mg capsule PO ondansetron 4 mg tablet,disintegrating naproxen 500 mg tablet ibuprofen 800 mg tablet 800 mg PO TID PRN (Reason: pain) 7 Days Qty: 21 0RF acetaminophen 500 mg tablet 1,000 mg PO TID PRN (Reason: cassandra) 7 Days Qty: 42 0RF oxycodone 5 mg tablet 5 mg PO Q4H PRN (Reason: pain) Qty: 20 0RF ondansetron 4 mg tablet,disintegrating 4 mg PO Q8H PRN (Reason: nausea and vomiting) Qty: 30 0RF tamsulosin [Flomax] 0.4 mg capsule 0.4 mg PO DAILY Qty: 30 0RF tamsulosin [Flomax] 0.4 mg capsule 0.4 mg PO DAILY 14 Days Qty: 14 0RF hydrocodone-acetaminophen 5-325 mg tablet 1 tablet PO Q12H PRN (Reason: pain) Qty: 14 0RF Follow-up/Referrals: Mervat,KNETRELL Woods Jr. [Primary Care Provider] - 2 Weeks Time of Disposition: 07:25
--- OUTSIDE RECORDS SUMMARY | 2024-10-29 07:29 | XMS_ITS | Clinical Summary ---
Author Organization [facility] Address [address] [place] [phone] Phone Care Team Providers Care Harness Maker Name Role Phone Unavailable Primary Care Provider [...] (2 - Td or Tdap) 01/25/2027 Insurance [facility] OPEN ACCESS HMO RX [employer]
--- OUTSIDE RECORDS SUMMARY | 2024-10-29 07:30 | XMS_ITS | Clinical Summary ---
Author Organization [address] Address [address] [place] [phone] Care Team Providers Care Sanitation Worker Hosing Machinery Name Role Phone KENTRELL Crowell Jr., Chuck Granado Primary Care Provide r Sandro Pavon MD Unavailable [phone] Allergies Active Allergy Reactions Criticality Noted Date [...] on file Legal Sex Male 1:08 AM SUPERVISOR SHAVING AND SPLITTING Gender Identity Not on file Sexual Orientation Not on file Obstetrics History Last Filed Vital Signs Vital Sign Reading Time Taken Comments Blood Pressure 130/82 05/04/2024 8:39 AM SUPERVISOR SHAVING AND SPLITTING Pulse 74 05/04/2024 8:39 AM SUPERVISOR SHAVING AND SPLITTING Temperature 36.2 C (97.2 F) 05/04/2024 8:39 AM SUPERVISOR SHAVING AND SPLITTING Respiratory Rate 20 05/04/2024 8:39 AM SUPERVISOR SHAVING AND SPLITTING Oxygen Saturation 98% 05/04/2024 8:39 AM SUPERVISOR SHAVING AND SPLITTING Inhaled Oxygen Concentration - - Weight 106.4 kg (234 lb 9.6 oz) 05/04/2024 8:39 AM SUPERVISOR SHAVING AND SPLITTING Height 175.9 cm (5' 9.25) 05/04/2024 8:39 AM CS T Body Mass Index 34.39 05/04/2024 8:39 AM SUPERVISOR SHAVING AND SPLITTING Plan of Treatment Health Maintenance Due Date [...] HEPATITIS C ANTIBODY Routine 05/04/2024 9:48 AM SUPERVISOR SHAVING AND SPLITTING Annual physical exam Encounter for hepatitis C screening test for low risk patient PSA SCREEN Routine 05/04/2024 9:48 AM SUPERVISOR SHAVING AND SPLITTING Annual physical exam from Last 3 Months or Most Recently Relevant to Health Maintenance Results * PSA screen (05/04/2024 9:48 AM SUPERVISOR SHAVING AND SPLITTING) PSA-Total 1.81 ng/mL Comment: Interpretive Data AGE [...] revised 21. Testing performed by: [facility], [address] [place] [address]., [id number] Blood 05/04/2024 9:48 AM SUPERVISOR SHAVING AND SPLITTING 05/04/2024 10:41 AM SUPERVISOR SHAVING AND SPLITTING KENTRELL Mckee Jr. LAB BLOOD ORDERABLES Final Result Performing Organization Address [facility] Co de Phone Number SOLO [address] [facility] Department [place] [address] * Hepatitis C antibody Blood (05/04/2024 9:48 AM SUPERVISOR SHAVING AND SPLITTING) Hep C Ab Nonreactive Nonreactive Comment: Antibodies [...] revised on 2019. Blood 05/04/2024 9:48 AM SUPERVISOR SHAVING AND SPLITTING 05/04/2024 1:20 PM SUPERVISOR SHAVING AND SPLITTING us KENTRELL Mckee Jr. LAB MICROBIOLOGY - GE NERAL ORDERABLES Final Result Performing Organization Address [facility] de Phone Number SOLO [address] [facility] Department [place] [address] from Last 3 Months or Most Recently Relevant to Health Maintenance Insurance [employer] [facility] [employer] Address: [facility] [address] [place] [address] [facility] CHOICE PLUS [employer] [facility] [employer] Address: [facility] [id number] [place] [address] [facility] Address: [facility] [id number] [place] [address] Care Teams Sanitation Worker Hosing Machinery Relationship Specialty Start Date End Date Chuck Crowell Jr. PA [address] [address] PCP - General Family Medicine 05/18/19 Sandro Pavon MD [address] [address] Consulting Physician Family Medicine 10/04/21
--- OUTSIDE RECORDS SUMMARY | 2024-10-29 07:30 | XMS_ITS | Referral Summary ---
Author Organization [address] Address [address] [place] [phone] Care Team Providers Care Insole Lip Turner Name Role Phone KENTRELL Crowell Jr., Chuck Granado Primary Care Provide r Sandro Pavon MD Unavailable [phone] Allergies Active Allergy Reactions Criticality Noted Date [...] on file Legal Sex Male 1:08 AM SEO EXPERT Gender Identity Not on file Sexual Orientation Not on file Last Filed Vital Signs Vital Sign Reading Time Taken Comments Blood Pressure 130/82 05/04/2024 8:39 AM SEO EXPERT Pulse 74 05/04/2024 8:39 AM SEO EXPERT Temperature 36.2 C (97.2 F) 05/04/2024 8:39 AM SEO EXPERT Respiratory Rate 20 05/04/2024 8:39 AM SEO EXPERT Oxygen Saturation 98% 05/04/2024 8:39 AM SEO EXPERT Inhaled Oxygen Concentration - - Weight 106.4 kg (234 lb 9.6 oz) 05/04/2024 8:39 AM SEO EXPERT Height 175.9 cm (5' 9.25) 05/04/2024 8:39 AM CS T Body Mass Index 34.39 05/04/2024 8:39 AM SEO EXPERT Plan of Treatment Not on file Procedures Procedure Name Priority Date/Time Associated Diagnosis Comments HEPATITIS C ANTIBODY Routine 05/04/2024 9:48 AM SEO EXPERT Annual physical exam Encounter for hepatitis C screening test for low risk patient PSA SCREEN Routine 05/04/2024 9:48 AM SEO EXPERT Annual physical exam from Last 3 Months or Most Recently Relevant to Health Maintenance Results * PSA screen (05/04/2024 9:48 AM SEO EXPERT) PSA-Total 1.81 ng/mL Comment: Interpretive Data AGE [...] data last revised 21. Testing performed by: [facility], [address] [place] [address]., [id number] Blood 05/04/2024 9:48 AM SEO EXPERT 05/04/2024 10:41 AM SEO EXPERT us KENTRELL Mckee Jr. LAB BLOOD ORDERABLES Final Result Performing Organization Address City/State/[facility] Co ms Phone [facility] [address] [facility] Department [place] [address] * Hepatitis C antibody Blood (05/04/2024 9:48 AM SEO EXPERT) Hep C Ab Nonreactive Nonreactive Comment: Antibodies [...] revised on 2019. Blood 05/04/2024 9:48 AM SEO EXPERT 05/04/2024 1:20 PM SEO EXPERT KENTRELL Mckee Jr. LAB MICROBIOLOGY - NERAL ORDERABLES Final Result SOLO [address] [facility] Department [place] [address] from Last 3 Months or Most Recently Relevant to Health Maintenance Insurance [employer] Address: [facility] [id number] [place] [address] [facility] CHOICE PLUS [employer] Address: [facility] [id number] [place] [address] [employer] [facility] Address: [facility] [id number] [place] [address] Care Teams Insole Lip Turner Relationship Specialty Start Date End Date Chuck Crowell Jr., PA [address] [place] [phone] PCP - General Family Medicine 05/18/19 Sandro Pavon MD [address] [place] [phone] Consulting Physician Family Medicine 10/04/21
[2024-10-29] MEDS: dexAMETHasone 10 MG/10 ML INTENSOL CONC (*BKC) PO (07:35)
[2024-10-29 07:47] VITALS: BP 151/106; PULSE 86; RESP 18; O2SAT 99
== END 2024-10-29 07:48 | disposition home or self-care (01) ==
PROVIDERS: Emergency Medicine; Emergency Provider Preventive Medicine Aerospace Medicine; PCP Physician Assistant
DX: J02.9 Acute pharyngitis, unspecified (principal); Z20.822 Contact with and (suspected) exposure to COVID-19
CPT/HCPCS: 87637; 87651; 99283; J8540